=== PATIENT | male | born 1975 | race American Indian/Alaskan Native ===

== ENCOUNTER 2019-04-17 04:56 | Emergency (ER) | payer OTHER ==
[2019-04-17 05:12] VITALS: BP 117/68; PULSE 93; RESP 16; TEMP 98.1; O2SAT 95
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
== END 2019-04-17 05:16 | disposition left against medical advice (07) ==
LOC: C.ER 04:56
DX: S09.90XA Unspecified injury of head, initial encounter (principal); S60.229A Contusion of unspecified hand, initial encounter; S50.10XA Contusion of unspecified forearm, initial encounter; Y08.89XA Assault by other specified means, initial encounter